=== PATIENT | female | born 1955 | race Caucasian/White ===

== ENCOUNTER 2021-08-22 14:37 | Emergency (ER) | payer MEDICARE ==
[~2021-08-22] VITALS: Ht 167.6 cm; Wt 70.3 kg
[2021-08-22] MEDS ORDERED: CASIRIVIMAB/IMDEVIMAB 10 ML in SODIUM CHLORIDE 0.9% 100 ML IV ONE (15:00)
[2021-08-22] MEDS ORDERED: CLONIDINE HCL 0.1 MG TAB PO ONE (16:15)
[2021-08-22] MEDS ORDERED: NORVASC5 MG PO (16:44)
== END 2021-08-22 16:50 | disposition home or self-care (01) ==
LOC: ER 15:33
DX: U07.1 COVID-19 (principal); I10 Essential (primary) hypertension
CPT/HCPCS: 99283; J7050